=== PATIENT | female | born 1995 | race Caucasian/White ===

== ENCOUNTER 2022-12-11 08:50 | Emergency (ER) | payer BC, SELFPAY ==
[2022-12-11 09:05] VITALS: BP 122/78; BP 126/85; PULSE 97; RESP 18; TEMP 36.6; O2SAT 95; O2SAT 97; BMI 24.9
[2022-12-11 09:13] VITALS: BP 126/85; PULSE 92; RESP 18; TEMP 36.2; O2SAT 97
--- NOTE | 2022-12-11 09:16 | PC.NURSE ---
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 Per Alice the coworker became concerned as Alice verbalized she was having a lot of anxiety . Alice denies SI/HI/AVH but does endorse a long HX of anxiety and depression. Alice reports she purchased medication off the website [employer] and she took a pill last night and had one in her pocket for today but has not taken it yet. Alice is unsure of the medication name but after looking up blue and white capsule with numbers 02 and letter x it appears the pill is a Duloxetine Hydrochloride DR 30mg.
[2022-12-11 09:51] LABS: MANUAL DIFF FLAG NO
[2022-12-11 09:56] LABS: Basophils Absolute Auto 0.1 X10*3/uL (0.0-0.2); Basophils Percent Auto 0.8 % (0-2); Eosinophils Absolute Auto 0.2 X10*3/uL (0.0-0.4); Eosinophils Percent Auto 2.4 % (0-4); Hematocrit 45.2 % (37.0-47.0); Hemoglobin 15.5 g/dl (12.0-16.0); Imm Gran Abs Auto 0.02 X10*3/uL (0.00-0.03); Imm Gran Pct Auto 0.2 % (0.0-0.4); Lymphocytes Absolute Auto 2.7 X10*3/uL (1.2-4.9); Lymphocytes Percent Auto 32.2 % (20-40); Mean Corpuscular HGB Conc 34.3 g/dl (31.0-35.0); Mean Corpuscular Volume 93.4 fL (80.0-98.0); Mean Platelet Volume 8.1 fL (9.4-12.3); Monocytes Absolute Auto 0.5 X10*3/uL (0.1-1.2); Monocytes Percent Auto 5.5 % (2-11); Neutrophils Absolute Auto 4.9 x10*3/uL (2.0-8.3); Neutrophils Percent Auto 58.9 % (45-73); Platelet Count 538 X10*3/uL (160-400); Red Blood Count 4.84 X10*6/uL (4.20-5.50); Red Cell Distribution Width 12.5 % (11.0-16.0); White Blood Count 8.3 X10*3/uL (4.8-10.8)
[2022-12-11 10:06] LABS: Ethanol 300 mg/dL
[2022-12-11 10:08] LABS: Alanine Aminotransferase 69 U/L (0-31); Albumin Level 4.6 g/dL (3.5-5.0); Alkaline Phosphatase 126 U/L (39-117); Anion Gap 19 (12-20); Aspartate Amino Transferase 71 U/L (5-31); Bilirubin Total 0.3 mg/dL (0.0-1.0); Blood Urea Nitrogen 10 mg/dL (9-16); Calcium 9.4 mg/dL (8.4-10.2); Carbon Dioxide 23 mmol/L (22-29); Chloride 104 mmol/L (96-108); Creatinine Clr Calc Pharmacy 121.3; Estimated Glomerular Filt Rate > 60; Glucose Random 82 mg/dL (60-115); Potassium 4.4 mmol/L (3.3-5.1); Sodium 142 mmol/L (135-145); Total Protein 7.9 g/dL (6.5-8.0)
[2022-12-11 10:10] LABS: Acetaminophen LAB < 17 mcg/mL (<30); Salicylate < 5.0 mg/dL (15-30)
--- NOTE | 2022-12-11 10:22 | ED.PSYCH ---
HPI - Psych General Chief Complaint: Psychiatric Symptoms Stated Complaint: PANIC ATTACK PER EMS Time Seen by Provider: 12/11/22 09:49 Source: patient and EMS Mode of arrival: EMS Limitations: no limitations History of Present Illness HPI Narrative: 27-year-old female with history of anxiety, depression, alcohol use who presents to the ER for evaluation of a panic attack. She states her symptoms started last evening when she was at work. 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 She states last night when she was at work she started feeling overwhelmed. She states she was just going through the motions. she ended up leaving early in going home. She lives with her parents. She admits to drinking a 750 mL bottle of red wine. When she woke up this morning to get ready for work she states it took all of the energy in her to get ready. she felt overwhelmed and anxious and did not want to go to work. When she got to work she became tearful and anxious, called a co-worker and her principal and said she could not going to the building. EMS was called. Patient was brought to the ER for further evaluation. Patient reports history panic attack a couple of weeks ago, predominant symptom at that time was hyperventilation. She states she has a therapist that she talks to once every couple of weeks. She was due to talk to her today. She reports getting depression medications online. She recently got back from vacation and has been on and off of it. Patient denies any admission for psychiatric care. She denies any history of alcohol withdrawal. She does report frequent alcohol use. Denies any other drug use besides marijuana and CBD gummies. complaint: feels depressed, anxiety and alcohol abuse Onset (ago): day(s) Duration: getting worse Relieving factors: none Exacerbating factors: therapy Context: recent alcohol abuse Associated psychiatric symptoms: depression and racing thoughts Related Data Home Medications Medication Instructions Recorded Confirmed No Known Home Meds 12/11/22 12/11/22 Allergies Allergy/AdvReac Type Severity Reaction Status Date / Time peanut AdvReac Itching Verified 12/11/22 09:15 tree nut AdvReac Itching Verified 12/11/22 09:15 Review of Systems Review of Systems: Yes all other systems are reviewed and are negative [facility] Social History Social History Advance Directives: No Advance Directives Information Provided: Yes Physical Exam Vital Signs: Vital Signs: Last Vital Signs Temp 97.2 F 12/11/22 09:13 Pulse 92 12/11/22 09:13 Resp 18 12/11/22 09:13 BP 126/85 12/11/22 09:13 Pulse Ox 97 12/11/22 09:13 O2 Del Method Room Air 12/11/22 09:13 BMI result Body Mass Index 24.9 Appearance: Alert. Oriented X3. No acute distress. Head: normocephalic, atraumatic. Eyes: Pupils equal, round and reactive to light. ENT: Pharynx normal. No tonsillar swelling or exudate. Neck: Normal inspection. Neck supple. CVS: Normal heart rate and rhythm. Pulses normal. Respiratory: No respiratory distress. Breath sounds normal. Abdomen: Soft and nontender. +BS x4 Skin: Skin warm and dry. Normal skin color. Normal skin turgor. No rashes. Extremities: No lower extremity edema. No joint swelling. Neuro/psych: Oriented X 3. No motor deficit. No sensory deficit. CN II-XII intact. Normal speech and cognition. Anxious, does not make eye contact, restless. mood is not great no SI or HI Course Reevaluation(s) Reevaluation #1: Physician observation started at 14:26. Patient placed in physician observation because patient is awaiting CARE team evaluation. At the time observation was started patient's vital signs were stable. Patient is alert and oriented. Neuro exam is non-focal. CV: RRR and lungs are clear. Will continue to monitor. Time: 14:26 Reevaluation #2: Care team Tierra evaluated patient states patient is safe for discharge. She recommended patient for partial program and outpatient follow-up. Patient being picked up by her mother. Patient is not suicidal or homicidal Time: 17:19 Medical Decision Making Medical Decision Making MDM Narrative: 27-year-old female with history of anxiety and depression, alcohol use presents to the ER for evaluation of a panic attack that started last night and was ongoing this morning. Positive alcohol use with an alcohol level of 300 on arrival. After several hours of sleeping in the emergency department, she was evaluated at the bedside. She continues to be anxious and feel overwhelmed. She reports depression but denies any suicidal homicidal ideation. She denies any hallucinations. She denies drinking alcohol this morning and states it was all last night. Lab work otherwise unremarkable. Care team to have a discussion with her regarding resources and possible interventions for assistance. do not anticipate she will require inpatient psychiatric care Differential Diagnosis Differential Diagnoses: The differential diagnosis associated with the presentation includes substance induced mood disorder, acute psychosis, schizophrenia, schizoaffective disorder, PTSD, bipolar disorder, major depression with psychotic features Consult Healthcare Provider Management of the patient was discussed with: Behavioral Health Provider Lab Data MDM Lab Attestation statement: I reviewed the patient's lab results. 12/11/22 09:45 12/11/22 09:45 Labs: Lab Results 12/11/22 12/11/22 Range/Units 09:45 14:10 WBC 8.3 (4.8-10.8) X10*3/uL RBC 4.84 (4.20-5.50) X10*6/uL Hgb 15.5 (12.0-16.0) g/dl Hct 45.2 (37.0-47.0) % MCV 93.4 (80.0-98.0) fL MCH 32.0 (27.0-33.0) pg MCHC 34.3 (31.0-35.0) g/dl RDW 12.5 (11.0-16.0) % Plt Count 538 H (160-400) X10*3/uL MPV 8.1 L (9.4-12.3) fL Immature Gran % (Auto) 0.2 (0.0-0.4) % Neut % (Auto) 58.9 (45-73) % Lymph % (Auto) 32.2 (20-40) % Josephine % (Auto) 5.5 (2-11) % Eos % (Auto) 2.4 (0-4) % Baso % (Auto) 0.8 (0-2) % Lymph # (Auto) 2.7 (1.2-4.9) X10*3/uL Josephine # (Auto) 0.5 (0.1-1.2) X10*3/uL Eos # (Auto) 0.2 (0.0-0.4) X10*3/uL Baso # (Auto) 0.1 (0.0-0.2) X10*3/uL Abs Immat Gran (auto) 0.02 (0.00-0.03) X10*3/uL Absolute Neuts (auto) 4.9 (2.0-8.3) x10*3/uL Absolute Nucleated RBC 0.000 (0.0-0.012) X10*3/uL Nucleated RBC % (auto) 0.0 (0.0-0.2) /100WBC Sodium 142 (135-145) mmol/L Potassium 4.4 (3.3-5.1) mmol/L Chloride 104 (96-108) mmol/L Carbon Dioxide 23 (22-29) mmol/L Anion Gap 19 (12-20) BUN 10 (9-16) mg/dL Creatinine 0.65 (0.5-1.4) mg/dL Estim Creat Clear Calc 121.3 Estimated GFR > 60 Random Glucose 82 (60-115) mg/dL Calcium 9.4 (8.4-10.2) mg/dL Total Bilirubin 0.3 (0.0-1.0) mg/dL AST 71 H (5-31) U/L ALT 69 H (0-31) U/L Alkaline Phosphatase 126 H (39-117) U/L Total Protein 7.9 (6.5-8.0) g/dL Albumin 4.6 (3.5-5.0) g/dL Urine Color Yellow Urine Appearance Clear Urine pH 5.5 (5.0-9.0) Ur Specific [place] 1.010 (1.005-1.025) Urine Protein Negative (Neg-Trace) mg/dL Urine Glucose (UA) Negative (Negative) mg/dL Urine Ketones Trace (Negative) mg/dL Urine Blood Moderate (2+) H (Negative) Urine Nitrite Negative (Negative) Ur Leukocyte Esterase Trace H (Negative) Urine RBC 3-5 H (0-2) /HPF Urine WBC 0-5 (0-5) /HPF Ur Squamous Epith Cells 6-10 (0-2) /HPF Urine Bacteria 2+ (None Seen) Hyaline Casts 0-2 (0-2) /LPF Urine Test NEGATIVE (NEGATIVE) Salicylates < 5.0 L (15-30) mg/dL Urine Opiates Screen Not Detected (Not Detect) Urine Fentanyl Screen Not Detected (Not Detect) Acetaminophen < 17 (<30) mcg/mL Ur Barbiturates Screen Not Detected (Not Detect) Ur Phencyclidine Scrn Not Detected (Not Detect) Ur Amphetamines Screen Not Detected (Not Detect) U Benzodiazepines Scrn Not Detected (Not Detect) Urine Cocaine Screen Not Detected (Not Detect) U Marijuana (THC) Screen POSITIVE H (Not Detect) Ethyl Alcohol 300 H* mg/dL Independent Historian Clinical information obtained from an independent historian. History obtained from or confirmed by: EMS Prescription Management I considered prescription management with: Other ( antipsychotic, benzodiazepine) Chronic Conditions Patient?s care impacted by: Other ( anxiety, depression) Social Determinants Patient?s care significantly limited by Social Determinants of Health including: Other Social Determinant of Health Discharge Plan Discharge Clinical Impression: Acute anxiety, Alcohol intoxication Patient Disposition: Home, Self-Care Instructions: Alcohol Intoxication (ED), Anxiety (ED) Additional Instructions: return to the ED for any concerning symptoms. Please follow-up with partial program you were referred to by our care team senior consumer insights consultant. Prescriptions: No Action No Known Home Meds Interventions: [place]-Suicide Risk Severity Scale Last Done: 12/11/22 09:13 ED Discharge Assessment Last Done: 12/11/22 17:33 Discharge Date/Time: 12/11/22 17:33 Print Language: Indonesian
[2022-12-11 14:18] LABS: UPreg QC Valid YES; Urine Pregnancy NEGATIVE (NEGATIVE)
[2022-12-11 14:20] LABS: Appearance Urine Clear; Color Urine Yellow; Glucose Urine UA Negative (Negative); Leukocyte Esterase Urine Trace (Negative); Nitrite Urine Negative (Negative); PH 5.5 (5.0-9.0); UMIC TRIGGER UACC YES; Urine Blood Moderate (2+) (Negative); Urine Ketones Trace mg/dL (Negative); Urine Protein Negative (Neg-Trace)
[2022-12-11 14:23] LABS: Amphetamine Screen Urine Not Detected (Not Detect); Barbiturates, Urine Not Detected (Not Detect); Benzodiazepines Screen Urine Not Detected (Not Detect); Cannabinoid Screen Urine POSITIVE (Not Detect); Cocaine Screen Urine Not Detected (Not Detect); Fentanyl, urine Not Detected (Not Detect); Opiate Screen Urine Not Detected (Not Detect); Phencyclidine Screen Urine Not Detected (Not Detect)
[2022-12-11 14:41] LABS: Bacteria Urine 2+ (None Seen); Hyaline Casts Urine 0-2 /LPF (0-2); WBC Urine 0-5 /HPF (0-5)
--- NOTE | 2022-12-11 17:19 | MHC.CARE ---
CARE Team responded to consult request by ED provider to speak to this patient about her anxiety and depression. 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 Patient was under the influence of alcohol and slept most of the day but later was easily engaged and open to speaking with a clinician.? Alert and oriented, patient presented as anxious, was fidgeting with her bracelets and hair, did not cry but seemed on the verge of tears. 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 She talked about having to work to secure insurance and that is the reason she applied. Patient has a private practice therapist in [place] via telehealth since [facility] psychiatrist moved to a different practice so is without. Has had several mediation trials Wellbutrin, Prozac, Zoloft but was unable to tolerate the side effects, currently takes Cymbalta but does not think it works and is not consistent. Patient endorsed struggling to identify what she wants to do in her life at this point and feels stuck. She denied suicidal ideation, plan or intention and denied history of such. PHP was suggested as an effective treatment to learn coping skills that she should consider, patient is already not functioning well at her job and could likely take a short leave to attend the program. Information was provided. Patient is not in crisis and no further intervention is necessary, she declined offer for a follow up call tomorrow. ED provider, YLN Negrete consulted and in agreement with plan to discharge.
== END 2022-12-11 17:33 | disposition home or self-care (01) ==
PROVIDERS: Emergency Provider Emergency Medicine
DX: F41.9 Anxiety disorder, unspecified (principal); F10.920 Alcohol use, unspecified with intoxication, uncomplicated; Y90.8 Blood alcohol level of 240 mg/100 ml or more; F32.A Depression, unspecified; Z79.899 Other long term (current) drug therapy
CPT/HCPCS: 36415; 80053; 80143; 80179; 80307; 81001; 81025; 85025; 99284